=== PATIENT | female | born 1985 | race Caucasian/White ===

== ENCOUNTER 2018-06-19 15:46 | Emergency (ER) | payer SELFPAY ==
[2018-06-19] MEDS ORDERED: ACETAMINOPHEN 325 MG TABLET PO ONE (17:04)
[2018-06-19] MEDS ORDERED: DIPH/PERTUSS(ACELL)/TETANUS VAC/PF 0.5 ML SYR (>=10YO) IM ONE (17:04)
--- NOTE | 2018-06-19 17:09 | ER Document Report ---
HPI - HPI Pain Level: 4 Notes: Patient is a 32-year-old female who presents to the ED with an abrasion/ laceration to the left medial palm times 3 days by a metal centeno. Patient states that she was trying to keep it clean as it was a small cut, but believes it is getting infected. Patient states that she was able to get purulent material from it earlier today and has had increased pain to that area. Patient states that the pain does not radiate. Denies any history of MRSA. Denies any IV drug use. Denies any drug allergies. Denies any headache, fever, URI, sore throat, chest pain, palpitations, syncope, cough, shortness of breath, wheeze, dyspnea, abdominal pain, nausea/vomiting/diarrhea, urinary retention, dysuria, hematuria, numbness/tingling, muscle paralysis/weakness, or rash. - ROS Systems Reviewed and Negative: Yes All other systems reviewed and negative - CONSTITUTIONAL Constitutional: DENIES: Fever, Chills Past Medical History - Social History Smoking Status: Current Every Day Smoker Frequency of alcohol use: None Drug Abuse: None Family History: Reviewed & Not Pertinent Patient has suicidal ideation: No Patient has homicidal ideation: No Renal/ Medical History: Denies: Hx Peritoneal Dialysis Vertical Provider Document - CONSTITUTIONAL Agree With Documented VS: Yes Notes: PHYSICAL EXAMINATION: GENERAL: Well-appearing, well-nourished and in no acute distress LUNGS: Breath sounds clear to auscultation bilaterally and equal. No wheezes rales or rhonchi. HEART: Regular rate and rhythm without murmurs, rubs, gallops. Musculoskeletal: Left hand: FROM to passive/active. Strength 5+/5. N/V intact distal. No bony tenderness. Extremities: No cyanosis, clubbing, or edema b/l. Peripheral pulses 2+. Capillary refill less than 3 seconds. NEUROLOGICAL: Cranial nerves grossly intact. Normal speech, normal gait. Normal sensory, motor exams PSYCH: Normal mood, normal affect. SKIN: Left medial palm: there is a 0.5cm narrow laceration, scabbed over, with mild surrounding erythema. + tenderness associated. No streaks or purulence noted. Course - Re-evaluation Re-evalutation: 06/19/18 17:06 Patient is an afebrile, well-hydrated, 32-year-old female who presents to the ED with cellulitis to the left medial palm status post abrasion/laceration. Vitals are acceptable without any significant tachycardia, tachypnea, or hypoxia. PE is otherwise unremarkable for any neurovascular compromise, obvious tendon/ligament rupture, obvious fracture/dislocation. No labs or imaging warranted at this time based on H&P. I did perform a simple incision and drainage by an 18-gauge to assess for any further abscess or purulent discharge within the laceration. No purulence was expressed at this time. Wound dressing was placed and wound instructions reviewed. I will send her home with a prescription for Bactrim and Keflex. tdap given today along with tylenol. Conservative measures otherwise for symptoms. Recheck with your PCM in 3-5 days. Return to the ED with any worsening/concerning symptoms otherwise as reviewed in discharge. Patient is in agreement. - Vital Signs Vital signs: Temp Pulse Resp BP Pulse Ox 97.4 F 79 16 130/77 H 99 06/19/18 15:53 06/19/18 15:53 06/19/18 15:53 06/19/18 15:53 06/19/18 15:53 Procedures - Incision and Drainage Left Hand Time completed: 17:00 - Patient tolerated procedure well without any complications Type: Simple I&D procedure: Chlorprep applied Incision Method: Incision made with needle - 18g Amount/type of drainage: bloody, no purulence, scant Discharge - Discharge Clinical Impression: Cellulitis of left hand Condition: Stable Disposition: HOME, SELF-CARE Instructions: Tetanus Immunization Given ([facility]), Soap Cleansing ([facility]), Antibiotic Ointment Protection ([facility]) Additional Instructions: Keep the skin clean Wash with soap and water Tylenol/ibuprofen if needed Triple antibiotic ointment daily Take medication as directed Monitor for any worsening symptoms Recheck with your PCM in 3-5 days Return to the ED with any worsening symptoms and/or development of fever, headache, chest pain, palpitations, syncope, shortness of breath, trouble breathing, abdominal pain, n/v/d, abscess, purulent discharge, red streaks, worsening swelling, or other worsening symptoms that are concerning to you. Prescriptions: Cephalexin Monohydrate [Keflex 500 mg Capsule] 500 mg PO BID #20 capsule Sulfamethoxazole/Trimethoprim [Bactrim Ds Tablet] 1 each PO BID #20 tablet Forms: Elevated Blood Pressure Referrals: [facility] [Provider Group] - Follow up as needed
[2018-06-19 18:33] VITALS: BP 129/75
== END 2018-06-19 18:31 | disposition home or self-care (01) ==
LOC: ER 15:46
PROC: 0H9GXZZ Drainage of Left Hand Skin, External Approach (ICD-10-PCS; principal; 2018-06-19)
DX: S61.402D Unspecified open wound of left hand, subsequent encounter (principal); L03.114 Cellulitis of left upper limb; W45.8XXD Other foreign body or object entering through skin, subsequent encounter
CPT/HCPCS: 90715; 99283